=== PATIENT | male | born 1995 | race Caucasian/White ===

== ENCOUNTER 2025-03-11 20:50 | Emergency (ER) | payer OTHER, SELFPAY ==
[2025-03-11 20:52] VITALS: BP 138/96
[2025-03-11 23:18] VITALS: BMI 34.0
[2025-03-11 23:20] VITALS: BP 152/94
--- NOTE | 2025-03-11 23:58 | ED.SKININJ ---
HPI-Injury
General
Chief Complaint: Skin Surface Trauma
Source: patient and spouse
Exam Limitations: none
Time Seen by Provider: 03/11/25 23:47
Nursing documentation reviewed up to this point in time: agreed with
History of Present Illness-Injury
Is this injury a work related problem?: Yes
Is pt an associate of [facility]?: No
Initial Injury comments:
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
Past History
Past History
ED Past Medical History: None
ED Past Surgical History: None
Social History
Tobacco: Non-smoker
Alcohol: None
Drug: None
Personal:
Living: with family
Employment: Employed
Review of Systems
Review of Systems
All Other Systems: Not applicable
Constitutional: Denies fever or fatigue
Musculoskeletal: Denies joint pain
Phy Exam
Physical Exam
Physical Exam:
Physical Exam
General: no apparent distress, not acutely ill
Neck: No jaundice
Lungs: no acute respiratory distress.
Neuro: alert and oriented. no focal neurological deficits
Skin: no rash
Psychiatric: well kept. interactive and cooperative
Extremities: Left hand 1 cm laceration proximal to the webspace between the thumb and the index finger full range of motion of cr�pe
Course
Orders/Labs/Results
Orders:
Orders
03/12/25 00:02
CR Hand - Left 2 Views Urgent
Reason For Exam: foreign body, lac
Vital Signs
Initial and Last Documented VS:
Initial Vital Signs
Temp Pulse Resp BP Pulse Ox
98.6 F 97 20 138/96 98
03/11/25 20:52 03/11/25 20:52 07/22/25 20:52 03/11/25 20:52 03/11/25 20:52
Last Documented Vital Signs
Temp Pulse Resp BP Pulse Ox
98.6 F 82 18 152/94 98
03/11/25 20:52 03/11/25 23:20 03/11/25 23:20 03/11/25 23:20 03/11/25 23:58
Procedures
Laceration Closure
Left Hand:
Status of Wound: dirty
Size of Wound in cm: 1
Description of Wound Edges: sharp
Preparation: cleaned with Betadine and other (Copious tap water)
Anesthesia: 1% Lidocaine
Revision/Debridement: irrigate-direct pressure
Wound exploration: explored to base- no FB
Type of Closure: single layer closure
Skin Closure Material: 4-0 nylon
Number of sutures: 1
MDM/Problems Addressed
Differential Diagnosis Includes:
Laceration foreign body no signs of tendinous injury
MDM/Problems Addressed:
Laceration
*Radiology
Radiology exam reviewed: preliminary read by ED provider
*Pulse Oximetry
SaO2: 98
Oxygen Mode of Delivery: Room air
Patient hypoxic: no
*Critical Care Note
Total Time (30-74mins, 75-104mins- exclusive of procedures): Not Applicable
Update Note
Update Note:
Update tetanus is up-to-date will clean wound check x-ray ankle foreign body closed primarily
ED Attending Note
-
Portions of this chart may have been created with voice recognition software.� Occasional wrong word or��sound alike� substitutions may have occurred due to the inherent limitations of voice recognition software.
Discharge Plan
Departure
Patient Disposition: Home (Routine Discharge)
Date of Disposition: 03/12/25
Time of Disposition: 00:11
Patient with high blood pressure during this ER visit?: No
Condition: Good
Discharge Problem:
Hand laceration
Instructions: Laceration Repair With Stitches (DC)
Prescriptions:
No Action
No Current Medications
0
Activity Restrictions/Additional Instructions:
Stitches out in 7 to 10 days by the ER or your family doctor
Interventions
Interventions:
*Risk Screen - Suicide Last Done: 03/11/25 20:52
*General Assessment Last Done: 03/11/25 20:52
*Neglect/Abuse Screening Last Done: 03/11/25 20:52
*ED- Fall Risk Assessment Last Done: 03/11/25 20:52
*ED COVID-19 Vaccine History Last Done: 03/11/25 20:52
ED-Skin Assessment Last Done: 03/11/25 23:18
Discharge Date and Time
Print Language: [id number]
[2025-03-12 00:24] VITALS: BP 141/95
== END 2025-03-12 00:40 | disposition home or self-care (01) ==
LOC: EMR 20:50
PROVIDERS: EMERGENCY PHYSICIAN Emergency Medicine
DX: S61.412A Laceration without foreign body of left hand, initial encounter (principal); W25.XXXA Contact with sharp glass, initial encounter
CPT/HCPCS: 99282; 12001; 73120